=== PATIENT | male | born 1995 | race Caucasian/White ===

== ENCOUNTER 2022-11-01 09:19 | Emergency (ER) | payer MEDICAID ==
[~2022-11-01] VITALS: Ht 170.2 cm; Wt 99.0 kg
[2022-11-01 09:23] VITALS: BP 127/82; O2SAT 99
[2022-11-01] MEDS ORDERED: LIDOCAINE HCL/EPINEPHRINE 1%-EPI 1:100,000 20 ML VIAL INFIL ONE (09:45)
[2022-11-01] MEDS ORDERED: BACITRACIN ZINC OINT UDPKT TOP ONE (09:45)
[2022-11-01 10:43] VITALS: PULSE 104; RESP 20; TEMP 98.4
== END 2022-11-01 10:45 | disposition home or self-care (01) ==
LOC: ER 09:19
DX: S61.411A Laceration without foreign body of right hand, initial encounter (principal); W26.8XXA Contact with other sharp object(s), not elsewhere classified, initial encounter; Y93.89 Activity, other specified; Y92.89 Other specified places as the place of occurrence of the external cause; Y99.8 Other external cause status
CPT/HCPCS: 12001; 99282; J3490